=== PATIENT | male | born 1945 | race Caucasian/White ===

== ENCOUNTER 2018-10-21 21:55 | Inpatient (IN) ==
--- NOTE | 2018-10-21 22:55 | Emergency Department Note ---
Fall HPI - General Chief Complaint: Fall Stated Complaint: EMS: R Hip Pain s/p Fall Time Seen by Provider: 10/21/18 22:36 Source: patient Mode of arrival: EMS - History of Present Illness HPI Narrative: Patient states he fell in his driveway. He lives by himself and it took appro ximately an hour and a half before he could get some help. A neighbor finally went to check on him and called EMS. EMS gave him 75 g of fentanyl. This was for right-sided hip pain. 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 He states he has not urinated for a little while. He denies the urge to urinate. Denies abdominal pain nausea or vomiting as many complaining of right-sided hip pain. Denies chest pain or shortness of breath in. He states he lost his balance and tripped and fell backwards landing on the right hip in his driveway. He did sustain a few skin slips to the left forearm area. He denies head injury. Does take blood thinners. History of atrial fibrillation Complaint: fall - Related Data Allergies Allergy/AdvReac Type Severity Reaction Status Date / Time No Known Drug Allergies Allergy Verified 10/21/18 21:59 Review of Systems All systems ED: reviewed and negative except as stated. Constitutional: Denies: fever, chills ENT ED: Denies: throat pain, dental pain Cardiovascular: Reports: dyspnea on exertion. Denies: chest pain, palpitations Respiratory: Reports: shortness of breath Gastrointestinal: Denies: abdominal pain, nausea, vomiting Integumentary: Reports: as per HPI Fall PMH - Past Medical History Attestation: Yes: The following information was validated with the patient. Medical history: Reports: atrial fibrillation, chronic anticoagulation, osteoporosis, other (history of penile cancer, status post urologic surgery) Surgical history ED: Reports: orthopedic, other Family history: Reports: no significant family history - Social History smoking status: Never smoker Physical Exam Limitations: physical limitation General appearance: alert Head: atraumatic, normocephalic, normal inspection Eye: Present: normal appearance, PERRL, EOMI. Absent: scleral icterus, conjunct ival injection ENT: normal exam, normal oropharynx, mucous membranes moist, other (heart of hearing.) Neck: Present: normal inspection, full ROM, trachea midline, other (decreased range of motion.). Absent: tenderness, meningismus Chest: Present: normal inspection, symmetric chest wall rise. Absent: tenderness Respiratory: Present: other (diminished breath sounds bilaterally.). Absent: rales/crackles, wheezes Cardiovascular: Present: irregular rhythm, normal heart sounds Abdominal: Present: soft. Absent: distention, tenderness : Present: other (assessments reconstruction of his urethra in the perineum. Single opening in the midline.). Absent: normal inspection Extremities: Present: tenderness, other (tender right hip area and shortened right extremity.) Back: Present: normal inspection, full ROM. Absent: CVA tenderness (R), CVA tenderness (L), vertebral tenderness Neurological: Present: alert, oriented X3, CN II-XII intact, motor sensory deficit, other (unable to lift the right leg.) Psychiatric: Present: normal affect, other (awake alert oriented 3.) Skin: Present: warm, dry, pallor Course Vital Signs Temperature 98.9 F 10/21/18 22:01 Pulse Rate 55 L 10/21/18 22:01 Respiratory Rate 18 10/21/18 22:01 Blood Pressure 100/47 10/21/18 22:01 Pulse Oximetry (%) 96 10/21/18 22:01 Temperature 98.9 F 10/21/18 22:01 Pulse Rate 55 L 10/21/18 22:01 Respiratory Rate 18 10/21/18 22:01 Blood Pressure 100/47 10/21/18 22:01 Pulse Oximetry (%) 96 10/21/18 22:01 Fall - [facility] Narrative Medical decision making narrative: Spoke with Dr. Osborne as well as Dr. Fung. Dr. Fung aware of his troch anteric fracture on the right it. He does have chronic renal insufficiency. Patient has had cancer in the past, is not sure what kind it. He cannot tell me. Initial holding orders written, case discussed with Dr. Osborne at this point we will start him on vitamin K. He will need further medical records, also further medical workup. He is chronically incontinent of urine. We were unable to pass a [place] catheter which was a 14 [place] catheter and at this point the attempts were abandoned, bladder scan was done. I suspect he is clinically dry, will need IV fluid hydration with his BUN being 84. His CK total was less than 50. I do not suspect rhabdo, however this may need to be monitored. EKG showing atrial fibrillation, controlled ventricular rate - Lab Data Lab results reviewed: Yes I reviewed the patient's lab results. Result diagrams: 10/21/18 23:03 10/21/18 23:03 Lab Results 10/21/18 10/21/18 10/21/18 Range/Units 23:03 23:03 23:03 WBC 9.7 (4.5-11.0) K/mcL RBC 3.82 L (4.50-5.90) M/mcL Hgb 10.3 L (13.5-16.5) g/dL Hct 32.3 L (41.0-55.0) % MCV 84.4 (80.0-100.0) fL MCH 26.9 (26.0-34.0) pg MCHC 31.8 (31.0-36.0) g/dL RDW 18.9 H (11.5-14.5) % Plt Count 142 (140-440) K/mcL MPV 9.6 (7.4-10.4) fL Gran % 83.3 H (38.0-78.0) % Lymph % (Auto) 6.2 L (15.5-49.0) % [place] % (Auto) 9.2 (1.0-12.0) % Eos % (Auto) 0.8 (0.0-7.0) % Baso % (Auto) 0.5 (0.0-2.0) % Gran # 8.1 H (1.8-8.0) K/mcL Lymph # (Auto) 0.6 L (1.5-4.8) K/mcL [place] # (Auto) 0.9 (0.1-0.9) K/mcL Eos # (Auto) 0.1 (0.0-0.7) K/mcL Baso # (Auto) 0 (0.0-0.3) K/mcL PT 30.9 H (11.9-14.5) sec INR 3.0 H (0.9-1.1) Sodium 136 (133-145) mmol/L Potassium 4.6 (3.3-5.1) mmol/L Chloride 94 L (96-108) mmol/L Carbon Dioxide 24 (22-30) mmol/L Anion Gap 18.0 H (8-16) BUN 84 H (8-23) mg/dl Creatinine 4.4 H (0.7-1.2) mg/dl GFR Calculation 12 Glucose 160 H (70-105) mg/dL Calcium 9.3 (8.6-10.4) mg/dl Total Bilirubin 0.7 (0.0-1.0) mg/dL AST 14 (0-37) U/l ALT 10 (0-40) U/l Alkaline Phosphatase 82 (39-117) U/L Total Creatine Kinase (24-195) IU/L Total Protein 7.2 (5.9-8.4) gm/dL Albumin 4.1 (3.2-5.2) gm/dL Globulin 3.1 (2.2-3.7) gm/dL Albumin/Globulin Ratio 1.3 (1.0-2.3) 10/21/18 Range/Units 23:03 WBC (4.5-11.0) K/mcL RBC (4.50-5.90) M/mcL Hgb (13.5-16.5) g/dL Hct (41.0-55.0) % MCV (80.0-100.0) fL MCH (26.0-34.0) pg MCHC (31.0-36.0) g/dL RDW (11.5-14.5) % Plt Count (140-440) K/mcL MPV (7.4-10.4) fL Gran % (38.0-78.0) % Lymph % (Auto) (15.5-49.0) % [place] % (Auto) (1.0-12.0) % Eos % (Auto) (0.0-7.0) % Baso % (Auto) (0.0-2.0) % Gran # (1.8-8.0) K/mcL Lymph # (Auto) (1.5-4.8) K/mcL [place] # (Auto) (0.1-0.9) K/mcL Eos # (Auto) (0.0-0.7) K/mcL Baso # (Auto) (0.0-0.3) K/mcL PT (11.9-14.5) sec INR (0.9-1.1) Sodium (133-145) mmol/L Potassium (3.3-5.1) mmol/L Chloride (96-108) mmol/L Carbon Dioxide (22-30) mmol/L Anion Gap (8-16) BUN (8-23) mg/dl Creatinine (0.7-1.2) mg/dl GFR Calculation Glucose (70-105) mg/dL Calcium (8.6-10.4) mg/dl Total Bilirubin (0.0-1.0) mg/dL AST (0-37) U/l ALT (0-40) U/l Alkaline Phosphatase (39-117) U/L Total Creatine Kinase 40 (24-195) IU/L Total Protein (5.9-8.4) gm/dL Albumin (3.2-5.2) gm/dL Globulin (2.2-3.7) gm/dL Albumin/Globulin Ratio (1.0-2.3) - Radiology Data Radiology results reviewed: Yes I reviewed the patient's radiology results. Disposition Pt seen by TICKETING CLERK/PA only: No Clinical Impression: Hip fracture Disposition: Xfer As Inpt ([facility]) Condition: Fair Referrals: Theron Myers DO [Primary Care Provider] -
[2018-10-21] MEDS ORDERED: ONDANSETRON 4 MG/2 ML VIAL IV ONE (22:59)
[2018-10-21] MEDS ORDERED: LACTATED RINGERS 1,000 ML IV SCH (23:15)
[2018-10-22 00:13] LABS: Basophils # (Auto) 0 K/mcL (0.0-0.3); Basophils % (Auto) 0.5 % (0.0-2.0); Eosinophils # (Auto) 0.1 K/mcL (0.0-0.7); Eosinophils % (Auto) 0.8 % (0.0-7.0); Granulocytes % (Auto) 83.3 % (38.0-78.0); Hematocrit 32.3 % (41.0-55.0); Hemoglobin 10.3 g/dL (13.5-16.5); Lymphocytes # (Auto) 0.6 K/mcL (1.5-4.8); Lymphocytes % (Auto) 6.2 % (15.5-49.0); Mean Cell Volume 84.4 fL (80.0-100.0); Mean Corpuscular HGB Conc 31.8 g/dL (31.0-36.0); Mean Platelet Volume 9.6 fL (7.4-10.4); Monocytes # (Auto) 0.9 K/mcL (0.1-0.9); Monocytes % (Auto) 9.2 % (1.0-12.0); Platelet Count 142 K/mcL (140-440); RBC 3.82 M/mcL (4.50-5.90); Red Cell Distribution Width 18.9 % (11.5-14.5); WBC 9.7 K/mcL (4.5-11.0)
[2018-10-22 00:29] LABS: Prothrombin Time 30.9 sec (11.9-14.5)
[2018-10-22 00:34] LABS: ALT/SGPT 10 U/l (0-40); AST/SGOT 14 U/l (0-37); Albumin 4.1 gm/dL (3.2-5.2); Albumin/Globulin Ratio 1.3 (1.0-2.3); Alkaline Phosphatase 82 U/L (39-117); Bilirubin,Total 0.7 mg/dL (0.0-1.0); Blood Urea Nitrogen 84 mg/dl (8-23); Calcium 9.3 mg/dl (8.6-10.4); Carbon Dioxide 24 mmol/L (22-30); Chloride 94 mmol/L (96-108); Globulin 3.1 gm/dL (2.2-3.7); Glomerular Filtration Rate 12; Glucose 160 mg/dL (70-105); Potassium 4.6 mmol/L (3.3-5.1); Sodium 136 mmol/L (133-145)
[2018-10-22] MEDS ORDERED: PHYTONADIONE 5 MG in 0.9 % SODIUM CHLORIDE 50 ML IV ONE (00:49)
[2018-10-22] MEDS ORDERED: 0.9 % SODIUM CHLORIDE 1,000 ML IV ONE (00:50)
[2018-10-22] MEDS ORDERED: PHYTONADIONE 10 MG/ML AMPUL ONE (01:09)
[2018-10-22] MEDS: 0.45 % SODIUM CHLORIDE 1,000 ML IV SCH ×2 (01:26→09:10)
[2018-10-22] MEDS: HYDROmorphone 2 MG/ML VIAL IV PRN ×2 (02:40→14:30)
--- NOTE | 2018-10-22 06:44 | XRay Report ---
CLINICAL INFORMATION: FALL COMPARISON: 04/20/2018 FINDINGS: Moderate cardiomegaly has increased from previous study. Mild mediastinal widening is unchanged. Pulmonary vessels are mildly distended in the upper lobes. No definite edema. Minor right basilar atelectasis appreciated small right pleural effusion IMPRESSION: Mild CHF or volume overload. No posttraumatic change Interpreted and Authenticated by: Esteban Bah 10/22/18
--- NOTE | 2018-10-22 06:45 | XRay Report ---
CLINICAL INFORMATION: fall, hip pain COMPARISON: None. FINDINGS: A moderately comminuted intertrochanteric fracture of the right hip demonstrates moderate coxa vera angulation. Mild displacement. Both SI and hip joints are normal with alignment without arthritic change. Soft tissue swelling over the fracture site noted. IMPRESSION: Moderately comminuted intertrochanteric fracture right hip Interpreted and Authenticated by: Esteban Bah 10/22/18
[2018-10-22] MEDS ORDERED: PANTOPRAZOLE 40 MG TABLET PO SCH ×2 (07:30→21:00)
--- NOTE | 2018-10-22 07:42 | Internal Med History&Physical ---
Medical - H&P: HPI Patient information: Note initiated : 10/22/18 at 7:39 am Service Date, if different from initiated Date: [] Patient: Theron Peñaloza 72 y/o M admitted on 10/22/18 for EMS: R Hip Pain s/p Fall. Chief Complaint: [] Chief complaint: fall History of present illness: Mr. Peñaloza is a 72 year old M who presented to the ER early this morning after sustaining a fall while trying to grab a winkler in the back of his trailer and got off balance while turning abruptly. Patient was apparently down for an hour and a half until he was found by his neighbor and called EMS and was brought into the ER. Initial work-up was consistent with intertrochanteric right hip fracture. Orthopedics was consulted and hospitalist services requested for admission. Patient carries an extensive medical history including chronic kidney disease, B-cell lymphoma, history of penile cancer status post perineal reconstruction, coronary disease and bradycardia. Initial BUN 88, creatinine 4. Patient follows up for his chronic kidney disease with Dr. Orosco. He also carries a history of chronic lymphedema with intermittent cellulitis that was treated recently at [place]. Initial INR was 3. Patient received 5 mg of vitamin K. At the time of evaluation patient is alert and oriented. He denies any active distress. He denies lightheadedness dizziness and attributes fall to getting off balance. He otherwise denies fever, cough, chest pain, unilateral weakness. He has been incontinent following penile surgery. Denies rash or joint pain Review of systems 10 point review of system was performed and is negative except was discussed above Medical - H&P: PMH Medical history: Atrial fibrillation Anticoagulation on Coumadin Previously evaluated at [place] cardiology for bradycardia February 2018, last EF 60% 2014 History of penile cancer Chronic lymphedema Recurrent lower extremity cellulitis Chronic kidney disease stage IIIb managed by Dr. Orosco Degenerative joint disease hyperlipidemia DM type II B-cell lymphoma Pertinent family history: Father at age 104 from Alzheimer's Diabetes mother Lives alone in a trailer Social history: Quit smoking 1985, occasional alcohol use Medical - H&P: Meds Home Medications Medication Instructions Recorded Confirmed Type Calcitriol [Rocaltrol] 0.25 mcg PO DAILY 10/22/18 10/22/18 History Docusate Sodium [Dok] 250 mg PO BIDP PRN 10/22/18 10/22/18 History Furosemide [Lasix] 40 mg PO DAILY 10/22/18 10/22/18 History Hydrocodone/APAP 7.5/325Mg [[place] 1 tab PO Q4HP PRN 10/22/18 10/22/18 History 7.5-325Mg] Insulin Glargine,Hum.rec.anlog 30 units SQ HSP PRN 10/22/18 10/22/18 History [Lantus Solostar] Magnesium Oxide [Magnesium] 500 mg PO DAILY 10/22/18 10/22/18 History Methocarbamol [Robaxin] 500 mg PO Q6-8HP PRN 10/22/18 10/22/18 History Metolazone [Zaroxolyn] 5 mg PO DAILY 10/22/18 10/22/18 History Potassium Chloride [Kdur] 30 meq PO BID 10/22/18 10/22/18 History Simvastatin [Zocor] 20 mg PO DAILY 10/22/18 10/22/18 History Spironolactone [Aldactone] 50 mg PO DAILY 10/22/18 10/22/18 History Warfarin [Coumadin] 2.5 mg PO DAILY 10/22/18 10/22/18 History predniSONE [Prednisone] 5 mg PO DAILY PRN 10/22/18 10/22/18 History Allergies Allergy/AdvReac Type Severity Reaction Status Date / Time No Known Drug Allergies Allergy Verified 10/21/18 21:59 Medical - H&P: Exam - Constitutional Vitals: Temp Pulse Resp BP Pulse Ox 98 F 57 L 14 110/73 98 10/22/18 04:00 10/22/18 04:00 10/22/18 04:32 10/22/18 04:32 10/22/18 04:00 Medical - H&P: Reslt - Labs CBC & Chem 7: 10/21/18 23:03 10/21/18 23:03 Labs: Short CBC 10/21/18 Range/Units 23:03 WBC 9.7 (4.5-11.0) K/mcL Hgb 10.3 L (13.5-16.5) g/dL Hct 32.3 L (41.0-55.0) % Plt Count 142 (140-440) K/mcL BMP 10/21/18 23:03 Sodium 136 Potassium 4.6 Chloride 94 L Carbon Dioxide 24 BUN 84 H Creatinine 4.4 H Glucose 160 H Calcium 9.3 Cardiac Enzymes 10/21/18 Range/Units 23:03 Total Creatine Kinase 40 (24-195) IU/L Liver Function 10/21/18 Range/Units 23:03 Total Bilirubin 0.7 (0.0-1.0) mg/dL AST 14 (0-37) U/l ALT 10 (0-40) U/l Alkaline Phosphatase 82 (39-117) U/L Albumin 4.1 (3.2-5.2) gm/dL Medical - H&P: A/P (1) Closed right hip fracture Current visit: Yes Status: Acute * Right intertrochanteric hip fracture-orthopedic consulted. Inpatient admission * Pain management on as needed opioids * Preoperative risk evaluation-based on RCRI [place] [employer] risk stratification patient falls under very high risk category given chronic kidney disease with insulin-dependent diabetes and history of CAD. Patient will have 9 to 12% risk of intraoperative and immediate postoperative risks of ACS/CVA. However there is no modifiable risk factor at this time. Surgery and anesthesia specific risks will be addressed by individual care providers. Patient understands above risks including and agrees to proceed with surgery. * Acute on chronic renal failure-nephrology consult. Avoid nephrotoxin, crystalloids * Anticoagulation on Coumadin-vitamin K for INR reversal. Target INR 1.6. * DM type II continue basal prandial insulin * History of hypertension continue spironolactone * Atrial fibrillation currently rate control with heart rate around low 50s * History of penile cancer status post perineal reconstruction * Full code Plan * Orthopedic consult * Inpatient admission * Keep n.p.o./crystalloids/pain management * Nephrology consult * Vitamin K * Pre-existing medical condition management on home meds Medical - H&P: Qual - VTE Deep Vein Thrombosis/Pulmonary Embolism Present on Admission: No
--- NOTE | 2018-10-22 10:46 | Transfer Summary ---
Transfer Discharge Sum: Prov Patient information: Note initiated : 10/22/18 at 10:37 am Service Date, if different from initiated Date: [] Patient: Theron Peñaloza 72 y/o M admitted on 10/22/18 for EMS: R Hip Pain s/p Fall. Chief Complaint: [] Date of admission: 10/22/18 02:14 Discharge Date: 10/22/18 Primary care physician: Theron Myers Consults: 10/22/18 08:00 Consult to Physician [CONS] Routine Comment: Consulting Provider: Walter Hager Reason For Exam: Physician to Consult Receiving physician/facility: [facility] Hospitalist service- Dr Jain Transfer Discharge Sum: Diag - Discharge Diagnosis (1) Closed right hip fracture Status: Acute Transfer Discharge Sum: Med - Medications Active and Home Medications: Home Medications Calcitriol [Rocaltrol] 0.25 mcg PO DAILY 10/22/18 [History Confirmed 10/22/18] Docusate Sodium [Dok] 250 mg PO BIDP PRN 10/22/18 [History Confirmed 10/22/18] Furosemide [Lasix] 40 mg PO DAILY 10/22/18 [History Confirmed 10/22/18] Hydrocodone/APAP 7.5/325Mg [[place] 7.5-325Mg] 1 tab PO Q4HP PRN 10/22/18 [History Confirmed 10/22/18] Insulin Glargine,Hum.rec.anlog [Lantus Solostar] 30 units SQ HSP PRN 10/22/18 [History Confirmed 10/22/18] Magnesium Oxide [Magnesium] 500 mg PO DAILY 10/22/18 [History Confirmed 10/22/18] Methocarbamol [Robaxin] 500 mg PO Q6-8HP PRN 10/22/18 [History Confirmed 10/22/18] Metolazone [Zaroxolyn] 5 mg PO DAILY 10/22/18 [History Confirmed 10/22/18] Potassium Chloride [Kdur] 30 meq PO BID 10/22/18 [History Confirmed 10/22/18] Simvastatin [Zocor] 20 mg PO DAILY 10/22/18 [History Confirmed 10/22/18] Spironolactone [Aldactone] 50 mg PO DAILY 10/22/18 [History Confirmed 10/22/18] Warfarin [Coumadin] 2.5 mg PO DAILY 10/22/18 [History Confirmed 10/22/18] predniSONE [Prednisone] 5 mg PO DAILY PRN 10/22/18 [History Confirmed 10/22/18] Active Medications Hydromorphone HCl (Dilaudid) 0.5 mg IV Q1HP PRN PRN Reason: PAIN LEVEL > 6 Last Admin: 10/22/18 02:40 Dose: 0.5 mg Documented by: Sodium Chloride (Sodium Chloride 0.45%) 1,000 mls @ 125 mls/hr IV .Q8H [facility] Last Admin: 10/22/18 01:26 Dose: 125 mls/hr Documented by: Pantoprazole Sodium (Protonix) 40 mg PO QAMAC [facility] Transfer Discharge Sum: Hosp Hospital course: Transfer diagnosis * Right intertrochanteric hip fracture-orthopedic consulted. However in light of bradycardia and high risk surgical candidacy patient be transferred to tertiary center for further management of bradycardia/hip fracture * Symptomatic bradycardia as low as 30s. Atrial fibrillation with bundle branch block not on AV deandra blockers. Patient has been offered pacemaker in the past but has declined. He agrees for cardiology consult today and will be transferred to tertiary center. * Pain management continue on as needed opioids * Preoperative risk evaluation-based on RCRI [place] [employer] risk stratification patient falls under very high risk category given chronic kidney disease with insulin-dependent diabetes and history of CAD. Patient will have 9 to 12% risk of intraoperative and immediate postoperative risks of ACS/CVA. However there is no modifiable risk factor at this time except for bradycardia management with pacemaker. Surgery and anesthesia specific risks will be addressed by individual care providers. Patient understands above risks including and agrees to proceed with surgery. * Acute on chronic renal failure-creatinine 4.4, BUN 84, await prior medical records to assess baseline. Nephrology consulted. Avoid nephrotoxin, crystalloids * Anticoagulation on Coumadin-status post 5 mg vitamin K for INR reversal. * DM type II continue basal prandial insulin * History of hypertension continue spironolactone * Atrial fibrillation currently rate control with heart rate around low 50s * History of penile cancer status post surgery 1998 Brief hospital course Mr. Peñaloza is a 72 year old M who presented to the ER early this morning after sustaining a fall while trying to grab a winkler in the back of his trailer and got off balance while turning abruptly. Patient was apparently down for an hour and a half until he was found by his neighbor and called EMS and was brought into the ER. Initial work-up was consistent with intertrochanteric right hip fracture. Orthopedics was consulted and hospitalist services requested for admission. Patient carries an extensive medical history including chronic kidney disease, B-cell lymphoma, history of penile cancer status post perineal reconstruction, coronary disease and bradycardia. Initial BUN 88, creatinine 4. Patient follows up for his chronic kidney disease with Dr. Orosco. He also carries a history of chronic lymphedema with intermittent cellulitis that was treated recently at [place]. Initial INR was 3. Patient received 5 mg of vitamin K. At the time of evaluation patient is alert and oriented. He denies any active distress. He denies lightheadedness dizziness and attributes fall to getting off balance. He otherwise denies fever, cough, chest pain, unilateral weakness. He has been incontinent following penile surgery. 10/22-patient shortly after admission shows prolonged episodes of bradycardia to low 30s. He remained asymptomatic. There were no long pauses except for A. fib with bundle branch on EKG. Case was discussed with orthopedics who felt the patient should be at tertiary center in light of prior history of coronary artery disease, bradycardia and a very high operative risk . Case was discussed with [place] transfer center and financial administrative assistant Dr. Martinez. Patient be transferred to hospitalist service for further management. Patient remains n.p.o. - Time Spent with Patient Total time spent providing and/or coordinating transfer services: Greater than 30 minutes Transfer Discharge Sum: Exam - Constitutional Vitals: Vital Signs Temp Pulse Pulse Resp BP BP Pulse Ox 10/22/18 08:00 97.0 F 42 L 12 110/57 100 10/22/18 04:32 14 110/73 10/22/18 04:00 98 F 57 L 14 96/54 98 10/22/18 02:14 97.8 F 52 L 14 94/59 96 10/21/18 22:20 61 125/67 94 10/21/18 22:17 58 L 66/41 94 10/21/18 22:10 64 100/47 95 10/21/18 22:01 98.9 F 55 L 18 100/47 96 Intake and Output 10/21/18 10/22/18 10/22/18 21:59 05:59 13:59 Intake Total 1220.5 Balance 1220.5 Intake: IV 1220.5 Lactated Ringers 1,000 ml @ 150 170 mls/hr IV .[id number] [facility] Rx#: [id number] Aquamephy[place] 5 mg In Sodium 50.5 Chloride 0.9% 50 ml @ 50 mls/hr IV ONCE ONE Rx#:[id number] Other: Weight 208 lb 8 oz Transfer Discharge Sum: Data Procedures and tests throughout hospitalization: 10/21/ Transfer Discharge Sum: A/P - Problem Maintenance (1) Closed right hip fracture Status: Acute - Plan Functional capacity at transfer: bed bound Disposition: Xfer [facility] Quality Measure Queries - VTE Deep Vein Thrombosis/Pulmonary Embolism Present on Admission: No
[2018-10-22 12:33] LABS: INR 2.1 (0.9-1.1); Prothrombin Time 23.4 sec (11.9-14.5)
--- NOTE | 2018-10-22 12:50 | Consultation ---
DATE OF CONSULTATION: 10/22/2018 ORTHOPEDIC CONSULTATION DATE OF CONSULTATION: 10/22/2018. REASON FOR CONSULTATION: Right hip fracture. CONSULTING PROVIDER: ER provider, Chago Moses MD. HISTORY OF PRESENT ILLNESS: The patient is a 72-year-old relatively complicated medical history male who fell in his driveway while attempting to get something off his trailer. He denies lightheaded or dizziness, but was mechanical in nature. He was on the ground for approximately an hour and a half prior to someone finding him and called EMS and subsequently transferred to [facility]. At that time, he was evaluated and found to have a right intertrochanteric hip fracture and Orthopedics was consulted and was admitted by the hospitalist overnight. Upon discussion this morning, he complained of only right-sided hip pain at this time. He denies any chest pain, headaches, dizziness, blurred vision or change in his mental or overall health status. PAST MEDICAL HISTORY: Significant for insulin-dependent diabetes; end-stage renal disease, however, not on dialysis; coronary artery disease along with AFib and bradycardia previously evaluated for pacemaker towards end of last year, decided not to proceed in that fashion; history of penile carcinoma; history of B cell lymphoma; bilateral lower extremity lymphedema with recurrent cellulitis; hyperlipidemia; arthritic changes throughout. PAST SURGICAL HISTORY: He had a shoulder surgery on his right side. He had penile resection. ALLERGIES: No known drug allergies. MEDICATIONS: He is on insulin, Robaxin, potassium, Metolazone, simvastatin, spironolactone, Coumadin, prednisone, furosemide, calcitriol, narcotic pain medication. SOCIAL HISTORY: He resides by himself. He has no immediate family in close proximity. He denies current tobacco use, stopped approximately 30 years ago. FAMILY HISTORY: Noncontributory. REVIEW OF SYSTEMS: urinary issues, dyspnea with excertion in addition to above noted mendial issues. The 10-point system is negative. PHYSICAL EXAMINATION: GENERAL: The patient is resting comfortably in bed. He is alert, oriented, interactive, appropriate, but hard of hearing. VITAL SIGNS: His heart rate was in the 30s and lower 40s, blood pressure 96/54. He is satting 98% on 2 liters of nasal cannula. EXTREMITIES: Examination of patient's bilateral upper extremities reveals a well healed incision of the right shoulder anteriorly. He has no focal tenderness to palpation or new deformities that is noted. He has sensation intact in the upper extremities to light touch. He can forward flex, abduct and flexed at the elbows as well as supinate and pronate the forearm, make a fist with the hand. Right lower extremity is short and externally rotated. Range of motion is deferred about his hip given known fracture. He has no tenderness to palpation about his knee, leg or foot. Left lower extremity: Atraumatic in appearance. Normal rotation. No pain with log roll of hip flexion, extension of the knee or motion of the ankle. His feet are warm and well perfused. Bilateral lower extremities have significant edema throughout along with weeping appearance of lymphedema and slightly erythematous throughout both lower extremities. IMAGING: He has plain films of the right hip demonstrated an intertrochanteric femur fracture that is displaced. LABORATORY DATA: He has a white count 9.7, hemoglobin 10.3, hematocrit 32.3, platelets are 142. His INR is 3. His glucose is 160. His creatinine is 4.4 with BUN 84. ASSESSMENT AND PLAN: This is a 72-year-old male who has a complicated medical history with a right intertrochanteric femur fracture. Discussed the fracture with him at length. Discussed this is relatively straightforward procedure and short; however, he has significant risk factors associated with the surgery itself. One of the main concern is bradycardia which is in the 30s most of the night. He also has kidney disease and currently is unable to void and attempted [place] placement has failed. Given these factors, the hospitalist and myself think it is likely not an ideal location given lack of resources to proceed with surgery as discussed with the patient who does want to proceed with surgery. The patient was discussed with [place] by the hospitalist and elected to transfer there. RONNELL:kal Job ID: [id number] Doc ID: [id number] Awais GRADY
== END 2018-10-22 14:50 | disposition short-term general hospital (02) | DRG 536 ==
LOC: ED 21:55 → ICU 10-22 02:14
PROVIDERS: ADMIT Internal Medicine; ATTEND Internal Medicine